=== PATIENT | female | born 1955 | race Caucasian/White ===

== ENCOUNTER → 2016-05-25 | Outpatient (CLI) | payer BC ==
[~2016-05-25] MED LIST: CHOL2000 PO; CRAN1CAP15 PO; MISC4CAP PO; PRAV20TA PO; PRLSR20 PO
== END | disposition home or self-care (01) ==
LOC: C.MAMM 13:28
PROVIDERS: ATTEND Internal Medicine
DX: C56.9 Malignant neoplasm of unspecified ovary (principal); M54.5 Low back pain; M81.0 Age-related osteoporosis without current pathological fracture

== ENCOUNTER → 2016-08-09 | Outpatient (CLI) | payer BC ==
[2016-08-10 18:03] LABS: ALBUMIN 4.6 G/DL (3.8-4.8); GAMMA GLOBULIN 1.1 G/DL (0.8-1.7); TOTAL PROTEIN 7.3 G/DL (6.2-8.3)
== END | disposition home or self-care (01) ==
LOC: C.LAB1850 10:41
PROVIDERS: ATTEND Internal Medicine Rheumatology
DX: M41.9 Scoliosis, unspecified (principal); M81.0 Age-related osteoporosis without current pathological fracture; E03.9 Hypothyroidism, unspecified; K21.9 Gastro-esophageal reflux disease without esophagitis; E61.8 Deficiency of other specified nutrient elements

== ENCOUNTER → 2017-04-28 | Outpatient (CLI) | payer BC ==
--- NOTE | 2017-04-28 14:34 | MAMMOGRAPHY REPORT ---
BILATERAL DIGITAL SCREENING MAMMOGRAM TOMOSYNTHESIS WITH CAD: 04/28/2017 CLINICAL HISTORY: Routine screening. TECHNIQUE: Breast tomosynthesis in addition to standard 2D mammography was performed. Current study was also evaluated with a Computer Aided Detection (CAD) system. COMPARISON: Comparison is made to exams dated: 03/23/2016 mammogram, 03/20/2015 mammogram, 01/17/2014 mammogram, 01/09/2014 mammogram, 12/22/2012 mammogram, and 11/19/2011 mammogram - [facility]. BREAST COMPOSITION: The tissue of both breasts is heterogeneously dense, which may obscure small mas ses. FINDINGS: No suspicious masses, calcifications, or areas of architectural distortion are noted in ei ther breast. There has been no significant interval change compared to prior exams. IMPRESSION: ACR BI-RADS CATEGORY 1: NEGATIVE There is no mammographic evidence of malignancy. A 1 year screening mammogram is recommended. The pa tient will receive written notification of the results. Approximately 10% of breast cancers are not detected with mammography. A negative mammographic report should not delay biopsy if a clinically suggestive mass is present. Akosua Hay M.D. /:04/28/2017 13:25:33 Cleaning Matron: Avis DICKERSON(Suze)(Leonor)([place]), [facility] letter sent: Normal 1/2 BI-RADS Code: ACR BI-RADS Category 1: Negative
== END | disposition home or self-care (01) ==
LOC: C.MAMM 13:00
PROVIDERS: ATTEND Internal Medicine
DX: Z12.31 Encounter for screening mammogram for malignant neoplasm of breast (principal)

== ENCOUNTER → 2017-06-28 | Outpatient (CLI) | payer OTHER | END | disposition home or self-care (01) | LOC: C.MAMM 15:15 | PROVIDERS: ATTEND Internal Medicine Rheumatology | DX: M81.0 Age-related osteoporosis without current pathological fracture (principal) ==

== ENCOUNTER 2021-01-24 16:28 | Inpatient (IN) ==
[2021-01-24] MEDS ORDERED: ONDANSETRON INJ 2 MG/ML 2 ML VIAL IV STA ×2 (16:52→17:45)
--- NOTE | 2021-01-24 16:58 | Emergency Department Note ---
History of Present Illness General Chief complaint: Abdominal Pain Stated complaint: EPIGASTRIC PAIN Time Seen by Provider: 01/24/21 16:43 Source: patient History of Present Illness Provider complaint: Upper abdominal pain Onset (ago): hour(s) Location: abdomen Radiation: non-radiation Pain Consistency: + constant Maximum Pain Intensity: 8 Quality: + sharp (Sometimes sharp) Relieved By: + none Associated symptoms: + nausea/vomiting; no chest pain, no cough, no fever/chills or no shortness of breath This is a 65-year-old female with a history of metastatic ovarian cancer and GERD presenting with epigastric pain starting at approximately 11:30 AM. She did have her customary breakfast of eggs and toast. She subsequently started to feel epigastric pain which felt very similar to her previous GERD pain. She describes it as a "pain" and sometimes sharp. No alleviating factors. She did take Pepcid twice without relief. She also took Tums without relief. She also started vomiting which is unusual for her. She did have a bowel movement today which was formed without melena or blood. She is urinating normally. She denies any fever, cough or cold symptoms, chest pain, shortness of breath, diarrhea or urinary symptoms. She did have surgery for her ovarian cancer earlier this year but states that her serum biomarkers are recently elevated. Home Medications Medication Instructions Recorded Confirmed Type calcium carbonate 500 mg (1,250 1 tab PO BID tab 02/22/19 01/24/21 History mg)-vitamin D3 200 unit tablet famotidine 20 mg tablet 20 mg PO QPM tab 12/10/19 01/24/21 History loperamide 2 mg capsule 2 mg PO .COMPLEX PRN 05/29/20 01/24/21 History omeprazole 20 mg capsule,delayed 20 mg PO DAILY #90 cap 11/24/20 01/24/21 Rx release pravastatin 80 mg tablet 80 mg PO QPM #90 tab 12/03/20 01/24/21 Rx Allergies Allergy/AdvReac Type Severity Reaction Status Date / Time No Known Drug Allergies Allergy Verified 01/24/21 17:57 Past Med/Surg History Medical History Cardiac pacemaker GERD without esophagitis Granulosa cell carcinoma of ovary Hyperglycemia Hyperlipidemia Osteoporosis Scoliosis Subclinical hypothyroidism Tubular adenoma of colon Vitamin D deficiency Surgical History H/O oral surgery S/P hysterectomy with oophorectomy S/P placement of cardiac pacemaker S/P tonsillectomy Family History Grandfather (Paternal) Coronary heart disease Grandfather (Maternal) Myocardial infarction Father Prostate cancer Denies family history of Ovarian cancer Crohn's disease Breast cancer Lung cancer Colorectal cancer Stroke Social History Smoking Status: Never smoker Second Hand Exposure: No; Hx Alcohol Use: Yes Hx Substance Use: No Preferred Language: Pakistani Communication Ability: Effective Visual Impairment: No Limitations Hearing Ability: Normal marital status: Current Living Situation: Spouse current occupational status: retired Feels Safe at Home: Yes Childhood Exposure to Second-Hand Smoke: Yes Dental Care, Regularly: Yes Physical Activity Frequency: 3-4 Times per Week Seatbelt Use: always Sunscreen Use: Yes Review of Systems See HPI for pertinent positives & negatives. and A total of 10 systems reviewed and were otherwise negative Physical Exam Vital Signs Vital Signs - 24 hr 01/24/21 16:36 01/24/21 17:15 01/24/21 21:30 Temperature 36.6 C Temperature Source Temporal Artery Scan Oral Pulse Rate 93 H Pulse Rate [Apical] 81 Pulse Rhythm [Apical] Regular Respiratory Rate 18 15 Respiratory Effort / Characteristics Non-Labored Respiratory Depth Normal Normal Respiratory Pattern Regular Blood Pressure 145/88 H Blood Pressure Mean 107 Pulse Oximetry 98 96 Oxygen Delivery Method Room Air Room Air Sepsis Recent Fever Within 48 Hours No Sepsis New/Unexplained Change in Mental Status No Sepsis Action Taken by Nursing No Action Required Constitutional: Vital signs reviewed. Eyes: Pupils are equal round reactive to light. Conjunctiva are noninjected. ENT: Pharynx is clear without erythema or exudate. Mucous membranes are slightly dry. Neck supple without meningeal signs. Respiratory: Clear to auscultation bilaterally. Breath sounds are equal bilaterally. Cardiovascular: Regular rate and rhythm. No rubs or gallops. GI: Soft, nondistended with epigastric tenderness. No guarding. Bowel sounds are present. Musculoskeletal: No peripheral edema. No lower extremity tenderness. Integumentary: No cyanosis. or jaundice. Neurological: The patient is awake and alert. No focal deficits. Psychiatric: Normal affect. Not anxious appearing. Course Administered Medications Sodium Chloride (Nss) 500 mls @ 125 mls/hr IV .Q4H MARGRET Stop: 02/23/21 16:59 Last Admin: 01/24/21 20:05 Dose: 125 mls/hr Documented by: [id number] Infusion: 01/24/21 20:05 Dose: 125 mls/hr Documented by: [id number] Admin: 01/24/21 17:11 Dose: 125 mls/hr Documented by: [id number] Discontinued Medications Ioversol (Optiray 320 100ml) 92 ml IV ONCE ONE Stop: 01/24/21 19:07 Last Admin: 01/24/21 19:06 Dose: 92 ml Documented by: [id number] Morphine Sulfate (Morphine Sulfate 4 Mg/Ml 1 Ml Carp\\Vial) 4 mg IV NOW STA Stop: 01/24/21 17:46 Last Admin: 01/24/21 17:50 Dose: 4 mg Documented by: [id number] Ondansetron HCl (Ondansetron Inj 2 Mg/Ml 2 Ml Vial) 4 mg IV NOW STA Stop: 01/24/21 16:53 Last Admin: 01/24/21 17:11 Dose: 4 mg Documented by: [id number] Ondansetron HCl (Ondansetron Inj 2 Mg/Ml 2 Ml Vial) 4 mg IV NOW STA Stop: 01/24/21 17:46 Last Admin: 01/24/21 17:50 Dose: 4 mg Documented by: [id number] Medical Decision Making Differential Diagnosis Peptic ulcer disease, gastritis, GERD, bowel obstruction, metastatic disease, pancreatitis, cholecystitis Medical Records Attestation: I reviewed the patient's medical records. I did perform a limited focused review of portions of the patient's old chart on the electronic medical record. The patient has a history of metastatic ovarian cancer. She had surgery in June. Home Medications Current Medication List: was personally reviewed by me Laboratory Data Attestation: I reviewed the patient's lab results. Result diagrams: 01/24/21 18:03 01/24/21 18:03 Lab Results 01/24/21 01/24/21 01/24/21 Range/Units 18:03 18:03 18:10 WBC 10.64 (4.8-10.8) K/uL RBC 4.34 (4.2-5.4) M/uL Hgb 13.1 (12.0-16.0) g/dL Hct 39.4 (37-47) % MCV 90.8 (80-100) fL MCH 30.2 (25-34) pg MCHC 33.2 (32-36) g/dL RDW Std Deviation 42.8 (36.4-46.3) fL RDW Coeff of [place]ed[place] 12.8 (11.5-14.5) % Plt Count 185 (130-400) K/uL MPV 10.9 H (7.4-10.4) fL Immature Gran % (Auto) 0.1 % Neut % (Auto) 91.2 % Lymph % (Auto) 6.4 % [place] % (Auto) 2.1 % Eos % (Auto) 0.0 % Baso % (Auto) 0.2 % Neut # (Auto) 9.71 H (1.4-6.5) K/uL Lymph # (Auto) 0.68 L (1.2-3.4) K/uL [place] # (Auto) 0.22 (0.11-0.59) K/uL Eos # (Auto) 0.00 (0-0.5) K/uL Baso # (Auto) 0.02 (0-0.2) K/uL Immature Gran # (Auto) 0.01 (0.00-0.02) K/uL Sodium 140 (136-145) mmol/L Potassium 3.4 L (3.5-5.1) mmol/L Chloride 107 (98-107) mmol/L Carbon Dioxide 25 (21-32) mmol/L Anion Gap 8.0 (3-11) BUN 13 (7-18) mg/dl Creatinine 0.72 (0.6-1.2) mg/dl Est Cr Clr Drug Dosing 59.1 ml/min Est GFR ( Amer) 102.6 ml/min Est GFR (Non-Af Amer) 88.5 ml/min BUN/Creatinine Ratio 18.2 (10-20) Glucose 125 H (70-99) mg/dl Lactate 1.3 (0.4-2.0) mmol/L Calcium 8.8 (8.5-10.1) mg/dl Total Bilirubin 0.3 (0.2-1) mg/dl AST 25 (15-37) U/L ALT 21 (12-78) U/L Alkaline Phosphatase 50 (45-117) U/L Troponin I < 0.015 (0-0.045) ng/ml Total Protein 7.7 (6.4-8.2) gm/dl Albumin 3.5 (3.4-5.0) gm/dl Globulin 4.2 H (2.5-4.0) gm/dl Albumin/Globulin Ratio 0.8 L (0.9-2) Lipase 166 (73-393) U/L COVID-19 Eval Order SARS-CoV-2 (PCR) (Negative) 01/24/21 01/24/21 Range/Units 20:26 20:26 WBC (4.8-10.8) K/uL RBC (4.2-5.4) M/uL Hgb (12.0-16.0) g/dL Hct (37-47) % MCV (80-100) fL MCH (25-34) pg MCHC (32-36) g/dL RDW Std Deviation (36.4-46.3) fL RDW Coeff of Cedrick (11.5-14.5) % Plt Count (130-400) K/uL MPV (7.4-10.4) fL Immature Gran % (Auto) % Neut % (Auto) % Lymph % (Auto) % [place] % (Auto) % Eos % (Auto) % Baso % (Auto) % Neut # (Auto) (1.4-6.5) K/uL Lymph # (Auto) (1.2-3.4) K/uL [place] # (Auto) (0.11-0.59) K/uL Eos # (Auto) (0-0.5) K/uL Baso # (Auto) (0-0.2) K/uL Immature Gran # (Auto) (0.00-0.02) K/uL Sodium (136-145) mmol/L Potassium (3.5-5.1) mmol/L Chloride (98-107) mmol/L Carbon Dioxide (21-32) mmol/L Anion Gap (3-11) BUN (7-18) mg/dl Creatinine (0.6-1.2) mg/dl Est Cr Clr Drug Dosing ml/min Est GFR ( Amer) ml/min Est GFR (Non-Af Amer) ml/min BUN/Creatinine Ratio (10-20) Glucose (70-99) mg/dl Lactate (0.4-2.0) mmol/L Calcium (8.5-10.1) mg/dl Total Bilirubin (0.2-1) mg/dl AST (15-37) U/L ALT (12-78) U/L Alkaline Phosphatase (45-117) U/L Troponin I (0-0.045) ng/ml Total Protein (6.4-8.2) gm/dl Albumin (3.4-5.0) gm/dl Globulin (2.5-4.0) gm/dl Albumin/Globulin Ratio (0.9-2) Lipase (73-393) U/L COVID-19 Eval Order Covid19 at [facility] SARS-CoV-2 (PCR) NEGATIVE (Negative) Imaging Data Radiologist's Impression: Abdomen/Pelvis CT 01/24/21 19:01 CT OF THE ABDOMEN AND PELVIS WITH CONTRAST CLINICAL HISTORY: Epigastric pain. Granulosa cell carcinoma of ovary. Evaluate for obstruction or mass. COMPARISON STUDY: CT of the abdomen and pelvis March 05, 2020. TECHNIQUE: Following IV administration of 92 mL of Optiray, axial images of the abdomen and pelvis were obtained from the lung bases to the proximal femurs. Images were reviewed in the axial, sagittal, and coronal planes. IV contrast was administered without complication. Automated exposure control was utilized for the study. A dose lowering technique was utilized adhering to the principles of ALARA. CT DOSE: 232.24 mGy.cm FINDINGS: Pacer leads are partially imaged. There are postoperative findings within the thoracolumbar spine. A 5 mm right lower lobe nodule on image 3 of 376 is indeterminate. No pneumatosis, free air or portal venous gas is present. The liver, spleen, adrenal glands, kidneys and pancreas are unremarkable. There is no biliary or pancreatic ductal dilatation. The previously described multiloculated cystic enhancing lesion within the right abdomen adjacent to the IVC and right kidney has increased in size since CT of March 05, 2020. This now measures 4.6 x 2.7 cm. It previously measured 3.9 x 2.4 cm. No additional masses or enlarged lymph nodes within the abdomen or pelvis are present. Trace fluid within the pelvis is noted. Note is made of mild dilatation of the proximal small bowel. Small bowel loops measure up to 3.4 cm in caliber. Transition point is shown within the lower abdomen on axial image 216 of 376. Distal small bowel is decompressed. There is mild mesenteric infiltration associated with several mid small bowel loops with mild small bowel wall thickening. The colon is decompressed. Major vasculature is patent. No acute fracture or suspicious lesion is identified within the visualized skeletal structures. IMPRESSION: 1. Mild dilatation of the proximal small bowel with transition point within the lower abdomen and decompressed distal small bowel. The findings represent a small bowel obstruction. Mesenteric infiltration and wall thickening associated with several small bowel loops may be related to the small bowel obstruction or represent a nonspecific enteritis. Small amount of ascites. 2. Increase in size of the multiloculated cystic enhancing right abdominal mass adjacent to the IVC and right kidney since CT of March 05, 2020. This is suggestive of metastatic disease. 3. Indeterminate 5 mm right lower lobe pulmonary nodule which can be assessed on subsequent exams. ACT 112: Negative or not required by law. Electronically signed by: Jonh Thurston M.D. 01/24/2021 7:35 PM ECG Data Attestation: I personally reviewed and interpreted this ECG as follows: Indication: + abdominal pain and + vomiting Rate (beats per minute): 74 Rhythm: + normal sinus ECG Justin: + Normal ECG ST segments: no ST elevation ECG Findings: no PVCs MDM Narrative I did evaluate the patient as noted above. She is presenting with epigastric pain. She states it feels similar to her GERD pain which she has had for over 10 years but it has not responded to Tums or Pepcid and it is associated with vomiting. IV access was established. I did treat her with normal saline and Zofran IV. I did place an order for continuous cardiac monitoring. The monitor showed normal sinus rhythm at a rate of 90 bpm. I did order and personally review the patient's 12-lead EKG as described above. She has no acute ischemic changes. I did order a urine analysis. I did order and review the patient's blood work as noted in the electronic medical record. White count is 10.6. She is not anemic. Electrolytes demonstrate a mild hypokalemia but are otherwise unremarkable. Troponin and LFTs and lipase are unremarkable. I did order a CT of the abdomen and pelvis with p.o. and IV contrast. She said she had a CAT scan scheduled for next week with contrast. Unfortunately she was unable to anselmo erate the oral contrast. I did treat her with morphine 4 mg IV and Zofran 4 mg IV but she threw up. I did change the CAT scan to only IV contrast. I did review the images myself as well as the radiology report as described above. She does appear to have an size of her right abdominal mass adjacent to the IVC as well as a pulmonary nodule and right lower lung and a small bowel obstruction. I did discuss the test results with the patient and her . I did discuss case with Dr. Cai of surgery. He recommended a NG tube. Case was discussed with the transplant case manager and the hospitalist was informed. I did order an NG tube and a COVID-19 test. Impression & Plan Small bowel obstruction, Acute hypokalemia Discharge Plan Visit Data Chief Complaint: Abdominal Pain Stated Complaint: EPIGASTRIC PAIN ED Provider: Grant Gomez Discharge Problem: Small bowel obstruction, Acute hypokalemia Patient Disposition: Being Evaluated by Hospitalist Discharge Instructions Interventions: ED Discharge Assessment Last Done: 01/24/21 22:23
[2021-01-24] MEDS: SODIUM CHLORIDE 0.9% 500 ML IV SCH ×2 (17:11→20:05)
[2021-01-24] MEDS ORDERED: MoRPHine SULFATE 4 MG/ML 1 ML CARP\\VIAL IV STA (17:45)
[2021-01-24 18:20] LABS: Basophils # (auto) 0.02 K/uL (0-0.2); Basophils % (auto) 0.2 %; Hematocrit (blood only) 39.4 % (37-47); Hemoglobin 13.1 g/dL (12.0-16.0); Immature Granulocytes # (auto) 0.01 K/uL (0.00-0.02); Immature Granulocytes % (auto) 0.1 %; Lymphocytes # (auto) 0.68 K/uL (1.2-3.4); Lymphocytes % (auto) 6.4 %; Mean Corpuscular Hemoglobin 30.2 pg (25-34); Mean Corpuscular Hgb Conc 33.2 g/dL (32-36); Mean Corpuscular Volume 90.8 fL (80-100); Mean Platelet Volume 10.9 fL (7.4-10.4); Monocytes # (auto) 0.22 K/uL (0.11-0.59); Monocytes % (auto) 2.1 %; Neutrophils # (auto) 9.71 K/uL (1.4-6.5); Neutrophils % (auto) 91.2 %; Platelet Count 185 K/uL (130-400); RDW Coefficient of Variation 12.8 % (11.5-14.5); RDW Standard Deviation 42.8 fL (36.4-46.3); Red Blood Count 4.34 M/uL (4.2-5.4); White Blood Count 10.64 K/uL (4.8-10.8)
[2021-01-24 18:39] LABS: Alanine Aminotransferase 21 U/L (12-78); Albumin Level 3.5 gm/dl (3.4-5.0); Aspartate Aminotransferase 25 U/L (15-37); BUN Creatinine Ratio 18.2 (10-20); Blood Urea Nitrogen 13 mg/dl (7-18); Calcium 8.8 mg/dl (8.5-10.1); Carbon Dioxide 25 mmol/L (21-32); Chloride 107 mmol/L (98-107); Creatinine Clr Calc Pharmacy 59.1 ml/min; Est GFR (African American) 102.6 ml/min; Est GFR (Non-African American) 88.5 ml/min; Glucose 125 mg/dl (70-99); Potassium 3.4 mmol/L (3.5-5.1); Sodium 140 mmol/L (136-145)
[2021-01-24 18:55] LABS: Albumin Globulin Ratio 0.8 (0.9-2); Alkaline Phosphatase 50 U/L (45-117); Bilirubin,Total 0.3 mg/dl (0.2-1); Globulin 4.2 gm/dl (2.5-4.0); Lipase 166 U/L (73-393); Total Protein 7.7 gm/dl (6.4-8.2); Troponin I < 0.015 ng/ml (0-0.045)
[2021-01-24] MEDS ORDERED: OPTIRAY 320 100ml IV ONE (19:06)
--- NOTE | 2021-01-24 19:36 | CT Scan Report ---
CT OF THE ABDOMEN AND PELVIS WITH CONTRAST CLINICAL HISTORY: Epigastric pain. Granulosa cell carcinoma of ovary. Evaluate for obstruction or mas s. COMPARISON STUDY: CT of the abdomen and pelvis March 05, 2020. TECHNIQUE: Following IV administration of 92 mL of Optiray, axial images of the abdomen and pelvis we re obtained from the lung bases to the proximal femurs. Images were reviewed in the axial, sagittal, and coronal planes. IV contrast was administered without complication. Automated exposure control wa s utilized for the study. A dose lowering technique was utilized adhering to the principles of ALARA . CT DOSE: 232.24 mGy.cm FINDINGS: Pacer leads are partially imaged. There are postoperative findings within the thoracolumbar spine. A 5 mm right lower lobe nodule on image 3 of 376 is indeterminate. No pneumatosis, free air o r portal venous gas is present. The liver, spleen, adrenal glands, kidneys and pancreas are unremarka ble. There is no biliary or pancreatic ductal dilatation. The previously described multiloculated cys tic enhancing lesion within the right abdomen adjacent to the IVC and right kidney has increased in s ize since CT of March 05, 2020. This now measures 4.6 x 2.7 cm. It previously measured 3.9 x 2.4 cm . No additional masses or enlarged lymph nodes within the abdomen or pelvis are present. Trace fluid within the pelvis is noted. Note is made of mild dilatation of the proximal small bowel. Small bowel loops measure up to 3.4 cm in caliber. Transition point is shown within the lower abdomen on axial im age 216 of 376. Distal small bowel is decompressed. There is mild mesenteric infiltration associated with several mid small bowel loops with mild small bowel wall thickening. The colon is decompressed. Major vasculature is patent. No acute fracture or suspicious lesion is identified within the visualiz ed skeletal structures. IMPRESSION: 1. Mild dilatation of the proximal small bowel with transition point within the lower abdomen and dec ompressed distal small bowel. The findings represent a small bowel obstruction. Mesenteric infiltrati on and wall thickening associated with several small bowel loops may be related to the small bowel ob struction or represent a nonspecific enteritis. Small amount of ascites. 2. Increase in size of the multiloculated cystic enhancing right abdominal mass adjacent to the IVC a nd right kidney since CT of March 05, 2020. This is suggestive of metastatic disease. 3. Indeterminate 5 mm right lower lobe pulmonary nodule which can be assessed on subsequent exams. ACT 112: Negative or not required by law. Electronically signed by: Jonh Thurston M.D. 01/24/2021 7:35 PM
--- NOTE | 2021-01-24 20:51 | Surgery Consultation ---
Date of Consultation January 24, 2021 Assessment & Plan (1) Small bowel obstruction: Patient has very mildly dilated small bowel She does have active bowel sounds which is encouraging She does most likely have significant adhesions from prior surgery We will attempt nonsurgical intervention which would include NG tube decompression Bowel rest and IV fluids If it does appear she may need surgery there is a possibility she would want to be transferred to [facility] History of Present Illness History of Present Illness 65-year old female presenting the emergency room with nausea and vomiting and some associated abdominal pain She has a history of metastatic ovarian cancer which is a granulosa cell tumor which is very slow-growing On June 2020 she underwent abdominal exploration with debulking procedure at [facility] She also had this done in 2004 and 2014 Her CAT scan showed mildly dilated small bowel to 3.4 cm with apparent transition point in the pelvis She also has some evidence of retroperitoneal mass which has enlarged from 3.9 to 4.6 cm since 02/2021 Allergies Allergy/AdvReac Type Severity Reaction Status Date / Time No Known Drug Allergies Allergy Verified 01/24/21 17:57 Home Medications Medication Instructions Recorded Confirmed Type calcium carbonate 500 mg (1,250 1 tab PO BID tab 02/22/19 01/24/21 History mg)-vitamin D3 200 unit tablet famotidine 20 mg tablet 20 mg PO QPM tab 12/10/19 01/24/21 History loperamide 2 mg capsule 2 mg PO .COMPLEX PRN 05/29/20 01/24/21 History omeprazole 20 mg capsule,delayed 20 mg PO DAILY #90 cap 11/24/20 01/24/21 Rx release pravastatin 80 mg tablet 80 mg PO QPM #90 tab 12/03/20 01/24/21 Rx Patient History Medical History (Updated 01/24/21 @ 20:47 by Grant Gomez MD) Cardiac pacemaker GERD without esophagitis Granulosa cell carcinoma of ovary Hyperglycemia Hyperlipidemia Osteoporosis Scoliosis Subclinical hypothyroidism Tubular adenoma of colon Vitamin D deficiency Surgical History H/O oral surgery S/P hysterectomy with oophorectomy S/P placement of cardiac pacemaker S/P tonsillectomy Family History Grandfather (Paternal) Coronary heart disease Grandfather (Maternal) Myocardial infarction Father Prostate cancer Denies family history of Ovarian cancer Crohn's disease Breast cancer Lung cancer Colorectal cancer Stroke Social History Smoking Status: Never smoker Second Hand Exposure: No; Hx Alcohol Use: Yes Hx Substance Use: No Preferred Language: Moroccan Communication Ability: Effective Visual Impairment: No Limitations Hearing Ability: Normal marital status: Current Living Situation: Spouse current occupational status: retired Feels Safe at Home: Yes Childhood Exposure to Second-Hand Smoke: Yes Dental Care, Regularly: Yes Physical Activity Frequency: 3-4 Times per Week Seatbelt Use: always Sunscreen Use: Yes Review of Systems Review of Systems: All systems reviewed & are unremarkable except as noted in HPI & below Physical Exam Physical Exam: Patient's abdomen is not significantly distended she has some mild discomfort to palpation She does have normal active bowel sounds Constitutional: no acute distress Eyes: + anicteric sclerae Respiratory: normal respiratory effort; no respiratory distress Cardiovascular: Rate/Rhythm: regular rate Gastrointestinal (Abdomen): Inspection/Auscultation: abdomen not distended Skin: no rashes, warm and dry Neurologic: awake Psychiatric: Orientation: alert Results & Data ([facility]) Vital Signs (Past 12 Hours) Vital Signs Temp Pulse Resp BP Pulse Ox 01/24/21 16:36 36.6 C 93 H 18 145/88 H 98 Laboratory Results I did review her laboratory studies Diagnostic Findings I did review her CAT scan PG Care Time/CCT Total # of Minutes Spent Total Time Spent with Patient: Total time spent is greater than 50% in coordination of care (as documented) at patient's floor/unit and/or counseling patient: Coding Level of Care Code 08152 Office/OBS Consult Lvl 4 Diagnoses Small bowel obstruction K56.609
--- NOTE | 2021-01-24 21:40 | History & Physical Report ---
Date of Service January 24, 2021 Assessment & Plan (1) Small bowel obstruction: Plan: 65 yo F w/ pMHx. of granulosa cell tumor, pacemaker placed, GERD, HLD, osteoporosis, and tubular adenoma of the colon and IBS presents with abdominal pain found to have SBO on CT a/p. SBO, potentially from adhesions from prior debulking surgery that was recently done vs. d/t mass CT a/p w/ findings of 1. SBO 2. increased size of multiloculated right abdominal mass adjacent to IVC concerning for metastasis 3. 5mm right lower lobe pulm. nodule WBC 10.6, lactate nl. at 1.3, lipase nl. - admitted to med/surg - consulted Dr. Cai with general surgery with rec. 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 lap in 2014, ex. lap in 06/29 [employer] Employment. onc. through [facility] CT a/p w/ mass as above - will need to follow up with oncology as an outpatient Reflux - holding oral medication - added IV Famotine while NPO HLD - holding Pravastatin while NPO Osteoporosis - holding Ca++ w/ Vit D while NPO Code: full Diet: NPO, IVF DVT: Lovenox (2) Acute hypokalemia: (3) Granulosa cell tumor: (4) GERD without esophagitis: (5) Osteoporosis: (6) Tubular adenoma of colon: (7) Subclinical hypothyroidism: History of Present Illness Chief Complaint: abdominal pain Primary Care Provider: Mikel Muniz MD Dolly Wiggins is a 65-year-old female with a past medical history of granulosa cell tumor, pacemaker placed, GERD, osteoporosis, and tubular adenoma of the colon and IBS presents with abdominal pain. She ate breakfast and then developed epigastric pain that was similar to her reflux symptoms. She took her normal a jhno suppressing medications including Famotidine and Omeprazole with no improvement in her symptoms. The pain was as bad as 8/10 when she came to the ER and sharp in nature. The pain is currently 5-6/10 after Morphine. She vomited twice prior to coming the the ER and twice while here in the ER. She did not have any preceding symptoms and has never had an obstruction previously. She did have a bowel movement after developing the abdominal pain. She has a granulosa cell tumor and underwent debulking surgery most recently in June. Her tumor markers were as high as 20's, had gone down but have come up on labs done on 01/23 to . Her doctor with Gynecology Oncology at [facility] is Dr. Lui Knox. She has a living will and I discussed palliative care and she was not interested in talking with them during this admission. Elizabeth Wiggins would like to be updated with any changes in her care @ # [phone] Allergies Allergy/AdvReac Type Severity Reaction Status Date / Time No Known Drug Allergies Allergy Verified 01/24/21 17:57 Home Medications Medication Instructions Recorded Confirmed Type calcium carbonate 500 mg (1,250 1 tab PO BID tab 02/22/19 01/24/21 History mg)-vitamin D3 200 unit tablet famotidine 20 mg tablet 20 mg PO QPM tab 12/10/19 01/24/21 History loperamide 2 mg capsule 2 mg PO .COMPLEX PRN 05/29/20 01/24/21 History omeprazole 20 mg capsule,delayed 20 mg PO DAILY #90 cap 11/24/20 01/24/21 Rx release pravastatin 80 mg tablet 80 mg PO QPM #90 tab 12/03/20 01/24/21 Rx Past Med/Surg History Medical History Cardiac pacemaker GERD without esophagitis Granulosa cell carcinoma of ovary Hyperglycemia Hyperlipidemia Osteoporosis Scoliosis Subclinical hypothyroidism Tubular adenoma of colon Vitamin D deficiency Surgical History H/O oral surgery S/P hysterectomy with oophorectomy S/P placement of cardiac pacemaker S/P tonsillectomy Family History Grandfather (Paternal) Coronary heart disease Grandfather (Maternal) Myocardial infarction Father Prostate cancer Denies family history of Ovarian cancer Crohn's disease Breast cancer Lung cancer Colorectal cancer Stroke Social History Smoking Status: Never smoker Second Hand Exposure: No; Hx Alcohol Use: Yes Alcohol type: wine Hx Substance Use: No Preferred Language: Hungarian Communication Ability: Effective Visual Impairment: No Limitations Hearing Ability: Normal Stoner Hand Required: No Beliefs That Will Affect Care: None marital status: Current Living Situation: Spouse current occupational status: retired Other Information That Helps Us Care for You: No Feels Safe at Home: Yes Safety Concerns: Feels Safe At This Time Childhood Exposure to Second-Hand Smoke: Yes Dental Care, Regularly: Yes Physical Activity Frequency: 3-4 Times per Week Seatbelt Use: always Sunscreen Use: Yes Assistive Devices: None Review of Systems Review of Systems: Constitutional: denies fevers, chills, general weakness, diaphoresis, night sweats, weight loss admits nausea and vomiting X4 Head: denies trauma, LOC, headaches, confusion, lightheadedness, vision changes Neuro: denies slurring of speech, focal weakness, numbness and tingling ENT: denies rhinorrhea, stuffiness, sneezing, sore throat Cardiac: denies chest pain, palpitations, leg edema, orthopnea pulm.: denies cough, shortness of breath GI: admits abdominal pain, constipation intermittently (uses Imodium for this 2- 3 times a week most recently on the ) : denies urinary urgency, frequency, dysuria Physical Exam Constitutional: WD/WN, vitals as above Eyes: PERRL, conjunctivae normal, anicteric sclerae ENMT: external ear and nose normal, oropharynx normal - NG in place and draining brown/green/ clear fluid Neck: normal visual inspection Respiratory: normal respiratory effort, lungs clear to auscultation Cardiovascular: RRR, no murmur, no edema Gastrointestinal (Abdomen): - high pitched tinkling bowel sounds heard - soft, no guarding - mild tenderness at the epigastric area w/o tenderness elsewhere Skin: no rashes, warm and dry - midline well healed abdominal scar Neurologic: PERRL, EOMI, accommodation nl, no face palsy, no dysarthria Psychiatric: A+Ox3, euthymic affect Results & Data Results & Data ([facility]) Vital Signs (Past 12 Hours) Vital Signs Temp Pulse Pulse Resp BP Pulse Ox 01/24/21 21:30 81 15 96 01/24/21 16:36 36.6 C 93 H 18 145/88 H 98 CBC Results Results Complete Blood Count Results: RBC 3.97 M/uL (4.2-5.4) L 01/25/21 WBC 9.36 K/uL (4.8-10.8) 01/25/21 Hgb 11.9 g/dL (12.0-16.0) L 01/25/21 Hct 35.5 % (37-47) L 01/25/21 Plt Count 192 K/uL (130-400) 01/25/21 Chemistry (BMP) Results BMP Results: Sodium 139 mmol/L (136-145) 01/25/21 Potassium 3.5 mmol/L (3.5-5.1) 01/25/21 Chloride 106 mmol/L (98-107) 01/25/21 BUN 11 mg/dl (7-18) 01/25/21 Creatinine 0.63 mg/dl (0.6-1.2) 01/25/21 Glucose 100 mg/dl (70-99) H 01/25/21 Code Status & VTE Plan VTE Prophylaxis Plan VTE Prophylaxis will be ordered: Yes Supervising Physician Co-Signing Physician Notes Attending addendum: I have physically seen this patient, have supervised the medical residents activities, and agree with the H&P unless as otherwise noted. Assessment and Plan: Small bowel obstruction- NPO NG tube to low intermittent suction IV fluids Morphine 2 mg IV every 4 hours as needed severe pain Consult general surgery Granulosa cell tumor status post bilateral salpingo-oophorectomy in 2004- Follows with [facility] CT of abdomen pelvis suggesting mass Need to follow-up with [facility] GERD- Placed on famotidine 20 mg IV every 12 hours Remaining orders and notations as noted Resident Activity Tracking Resident Involvement: Resident Care Provided Care Provided: Adult Hospital Medicine
[2021-01-24 21:56] LABS: Appearance Urine Clear (Clear); Bilirubin Urine Negative (Negative); Blood Urine Negative (Negative); Color Urine Yellow; Glucose Urine UA Negative (Negative); Ketones Urine 1+ (Negative); Leukocyte Esterase Urine Negative (Negative); Nitrite Urine Negative (Negative); Protein Urine Negative (Negative); Specific Gravity Urine > 1.045 (1.000-1.030); Urobilinogen Urine Negative (Negative); pH Urine 8.5 (4.5-7.5)
[2021-01-24] MEDS ORDERED: MoRPHine SULFATE 2 MG/ML CARP IV PRN (23:25)
[2021-01-24] MEDS ORDERED: ONDANSETRON INJ 2 MG/ML 2 ML VIAL IV PRN (23:25)
[2021-01-24] MEDS: SODIUM CHLORIDE 0.9% 1000ML 1,000 ML IV SCH (23:44)
[2021-01-25] MEDS ORDERED: ENOXAPARIN INJ 40 MG/0.4 ML SYR SQ SCH
[2021-01-25] MEDS: ENOXAPARIN INJ 40 MG/0.4 ML SYR SQ SCH (06:08)
[2021-01-25] MEDS: SODIUM CHLORIDE 0.9% 1000ML 1,000 ML IV SCH (07:03)
[2021-01-25] MEDS: MoRPHine SULFATE 4 MG/ML 1 ML CARP\\VIAL IV PRN ×2 (07:05→13:42)
--- NOTE | 2021-01-25 07:06 | Surgery Progress Note ---
Date of Service January 25, 2021 Assessment & Plan (1) Small bowel obstruction: Plan: I believe she had significant gastric distention The NG tube is helping with decompression We will give her ice Encourage ambulation Check her a.m. labs Depending on her progress may consider small bowel follow tomorrow Admission and Anticipated Discharge Date Admission Date: January 24, 2021 Subjective Patient had 950 cc from NG tube She has minimal in the container this morning She did have some crampy pain during the night No emesis Review of Systems Review of Systems: All systems reviewed & are unremarkable except as noted in HPI & below Physical Exam Physical Exam: She is awake and alert in no distress Her abdomen is flat and soft with minimal tenderness Constitutional: well developed and well nourished; no acute distress Eyes: + anicteric sclerae Respiratory: normal respiratory effort; no respiratory distress Cardiovascular: Rate/Rhythm: regular rate Gastrointestinal (Abdomen): Percussion/Palpation: abdomen soft Musculoskeletal: Gait: normal gait Skin: no rashes, warm and dry Neurologic: awake Psychiatric: Orientation: alert Results & Data ([facility]) Vital Signs (Past 12 Hours) Vital Signs Temp Pulse Pulse Resp BP Pulse Ox 01/24/21 23:25 37 C 75 16 165/80 H 95 01/24/21 21:30 81 15 96 PG Care Time/CCT Total # of Minutes Spent Total Time Spent with Patient: Total time spent is greater than 50% in coordination of care (as documented) at patient's floor/unit and/or counseling patient: Coding Level of Care Code 32189 Inpt Consult Level 3 Diagnoses Small bowel obstruction K56.609
[2021-01-25] MEDS: FAMOTIDINE 20 MG in SYRINGE 3 ML IV SCH (08:24)
[2021-01-25 09:27] LABS: Basophils # (auto) 0.03 K/uL (0-0.2); Basophils % (auto) 0.3 %; Eosinophils # (auto) 0.01 K/uL (0-0.5); Eosinophils % (auto) 0.1 %; Hematocrit (blood only) 35.5 % (37-47); Hemoglobin 11.9 g/dL (12.0-16.0); Immature Granulocytes # (auto) 0.03 K/uL (0.00-0.02); Immature Granulocytes % (auto) 0.3 %; Lymphocytes # (auto) 0.97 K/uL (1.2-3.4); Lymphocytes % (auto) 10.4 %; Mean Corpuscular Hgb Conc 33.5 g/dL (32-36); Mean Corpuscular Volume 89.4 fL (80-100); Mean Platelet Volume 10.7 fL (7.4-10.4); Monocytes # (auto) 0.59 K/uL (0.11-0.59); Monocytes % (auto) 6.3 %; Neutrophils # (auto) 7.73 K/uL (1.4-6.5); Neutrophils % (auto) 82.6 %; Platelet Count 192 K/uL (130-400); RDW Coefficient of Variation 13.1 % (11.5-14.5); RDW Standard Deviation 42.3 fL (36.4-46.3); Red Blood Count 3.97 M/uL (4.2-5.4); White Blood Count 9.36 K/uL (4.8-10.8)
[2021-01-25 09:47] LABS: Albumin Level 3.6 gm/dl (3.4-5.0); BUN Creatinine Ratio 17.4 (10-20); Calcium 8.4 mg/dl (8.5-10.1); Creatinine Clr Calc Pharmacy 67.1 ml/min; Est GFR (African American) 109.9 ml/min; Est GFR (Non-African American) 94.8 ml/min; Potassium 3.5 mmol/L (3.5-5.1)
[2021-01-25 09:49] LABS: Albumin Globulin Ratio 1.1 (0.9-2); Bilirubin,Total 0.4 mg/dl (0.2-1); Globulin 3.4 gm/dl (2.5-4.0)
--- NOTE | 2021-01-25 13:04 | Hospitalist Progress Note ---
Date of Service January 25, 2021 Assessment & Plan (1) Small bowel obstruction: Plan: Dolly Wiggins is a 65 yo female with PMHx significant for granulosa cell tumor, s/p PPM, GERD, HLD, osteoporosis, and tubular adenoma of the colon and IBS who was admitted to [facility] on 01/24 for small bowel obstruction. Small Bowel Obstruction Suspect due to adhesions from prior abdominal surgeries; less likely due to cystic right abdominal mass (see below) given clinical improvement thus far. Patient is improving after placement of NG tube; had ~1L output overnight. 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 lap in 2014, ex. lap in 06/[address] A/P this hospitalization: increased size of multiloculated right abdominal mass adjacent to IVC concerning for metastasis, as well as 5mm right lower lobe pulmonary nodule. - Patient follows with Dr. Lui Knox ([facility] [employer] Onc) at [facility] [place], [place] - will need to follow up with [employer] Onc as an outpatient, for consideration of another surgery vs other treatments - CT A/P burned on CD for the patient to take for [employer] Onc f/u GERD - holding oral medication - continue IV Famotine while NPO HLD - holding Pravastatin while NPO Osteoporosis - holding Calcium and Vitamin D while NPO Code: FULL CODE FEN/GI: NPO, LR @80cc/hr DVT ppx: Lovenox (2) Acute hypokalemia: (3) Granulosa cell tumor: (4) GERD without esophagitis: (5) Osteoporosis: (6) Tubular adenoma of colon: (7) Subclinical hypothyroidism: Admission and Anticipated Discharge Date Admission Date: January 24, 2021 Supervising Physician Co-Signing Physician Notes I personally examined the patient and verified all larson points of history and exam, discussed case, and agree with decision making with Dr Crawford feeling better still some pain and nausea but better than last night Vitals noted, pleasant no distress. NG tube in place without breakdown. Abdomen is soft nondistended nontender no masses organomegaly guarding rebound or rigidity. No focal neuro deficits. Small bowel obstructionhopefully adhesional, cannot definitively rule out tumor relatedgiven that she is improving, more likely adhesional. Obviously if improvement stalls out, or she shows worsening, then we may need to consider tumor relatedat which point would probably be most appropriate to transfer to where she has her [employer] oncology surgery. In the meantime however, continue NG drainage supportive care pain control nausea control. For a small bowel follow- through tomorrow per surgery. Otherwise as above. DVT prophylaxisLovenox Subjective No acute events overnight. NG tube ~1L output. Patient reports feeling much better this morning; no nausea or vomiting. Still has mild epigastric tenderness but this has been well-controlled. No other complaints. Review of Systems Review of Systems: Denies fever/chills, chest pain, palpitations, SOB, cough, N/V, rash. Physical Exam Physical Exam: General: A&Ox3. NAD. Cooperative. HEENT: Atraumatic, normocephalic. NG tube in place. Pulm: CTAB A&P. -wheezes, -rales, -rhonchi. Symmetrical chest rise. No increase work of breathing. No respiratory distress. Cardiac: RRR, -mrg. Radial pulses intact and symmetrical. Abdominal: soft, non-tender, non-distended, hyperactive BS x 4, laparotomy scar c/d/i Skin: warm, dry, no rash Results & Data Results & Data ([facility]) Vital Signs (Past 12 Hours) Vital Signs Temp Pulse Resp BP Pulse Ox 01/25/21 07:28 36.9 C 72 16 117/68 97 Resident Activity Tracking Resident Involvement: Resident Care Provided Care Provided: Adult [facility] Medicine
[2021-01-25] MEDS: LACTATED RINGER'S 1,000 ML IV SCH (13:38)
--- NOTE | 2021-01-25 17:48 | Billing Data ---
Date of Service January 25, 2021 Coding Level of Care Code 91389 Subseq Hosp Care Lvl 2
--- NOTE | 2021-01-25 19:22 | Billing Data ---
Date of Service January 25, 2021 Coding Level of Care Code 17852 Initial Inpt Care Lvl 3
--- NOTE | 2021-01-25 20:26 | Electrocardiogram Report ---
Test Reason : Blood Pressure : / mmHG Vent. Rate : 074 BPM Atrial Rate : 074 BPM P-R Int : 140 ms QRS Dur : 082 ms QT Int : 404 ms P-R-T Axes : 065 070 067 degrees QTc Int : 448 ms Poor data quality, interpretation may be adversely affected Normal sinus rhythm Normal ECG When compared with ECG of 31-DEC-2009 11:54, No significant change was found Confirmed by David Hernandez ([id number]) on 01/25/2021 8:26:38 PM Referred By: REFERRED SELF Confirmed By:David Hernandez
[2021-01-26] MEDS: LACTATED RINGER'S 1,000 ML IV SCH (00:49)
[2021-01-26] MEDS: ENOXAPARIN INJ 40 MG/0.4 ML SYR SQ SCH (06:14)
--- NOTE | 2021-01-26 06:36 | Surgery Progress Note ---
Date of Service January 26, 2021 Assessment & Plan (1) Small bowel obstruction: Plan: Patient appears to be stable She does have moderate NG output She has less pain which is a positive sign We will obtain a small bowel follow-through via the NG tube Assess transit of contrast Over the next 24 to 48 hours if she does not progress we may consider Transfer to [facility] or the [facility] where her primary [employer] WORK[employer] oncologist is Would need to discuss details with her more Admission and Anticipated Discharge Date Admission Date: January 24, 2021 Subjective Patient continues to have bilious NG output Her pain is less and has had taking no pain medication recently Vital signs are stable Review of Systems Review of Systems: All systems reviewed & are unremarkable except as noted in HPI & below Physical Exam Physical Exam: Her abdomen is flat and soft she has some bowel sounds but diminished Minimal tenderness Constitutional: no acute distress Eyes: + anicteric sclerae Respiratory: normal respiratory effort; no respiratory distress Cardiovascular: Rate/Rhythm: regular rate Gastrointestinal (Abdomen): Inspection/Auscultation: abdomen not distended Musculoskeletal: Head/Neck/Chest: head atraumatic Skin: no rashes, warm and dry Neurologic: awake Psychiatric: Orientation: alert Results & Data ([facility]) Vital Signs (Past 12 Hours) Vital Signs Temp Pulse Resp BP Pulse Ox 01/25/21 22:09 36.8 C 72 18 127/65 97 PG Care Time/CCT Total # of Minutes Spent Total Time Spent with Patient: Total time spent is greater than 50% in coordination of care (as documented) at patient's floor/unit and/or counseling patient: Coding Level of Care Code 63905 Inpt Consult Level 4 Diagnoses Small bowel obstruction K56.609
[2021-01-26 07:03] LABS: Basophils # (auto) 0.01 K/uL (0-0.2); Basophils % (auto) 0.1 %; Eosinophils # (auto) 0.03 K/uL (0-0.5); Eosinophils % (auto) 0.3 %; Hematocrit (blood only) 38.2 % (37-47); Hemoglobin 12.8 g/dL (12.0-16.0); Immature Granulocytes # (auto) 0.01 K/uL (0.00-0.02); Immature Granulocytes % (auto) 0.1 %; Lymphocytes # (auto) 0.88 K/uL (1.2-3.4); Lymphocytes % (auto) 9.4 %; Mean Corpuscular Hemoglobin 30.5 pg (25-34); Mean Corpuscular Hgb Conc 33.5 g/dL (32-36); Mean Platelet Volume 11.1 fL (7.4-10.4); Monocytes # (auto) 0.59 K/uL (0.11-0.59); Monocytes % (auto) 6.3 %; Neutrophils # (auto) 7.88 K/uL (1.4-6.5); Neutrophils % (auto) 83.8 %; Platelet Count 204 K/uL (130-400); RDW Coefficient of Variation 12.9 % (11.5-14.5); RDW Standard Deviation 43.2 fL (36.4-46.3)
[2021-01-26 07:33] LABS: BUN Creatinine Ratio 24.1 (10-20); Calcium 8.9 mg/dl (8.5-10.1); Creatinine Clr Calc Pharmacy 72.9 ml/min; Est GFR (African American) 112.9 ml/min; Est GFR (Non-African American) 97.4 ml/min; Magnesium 2.6 mg/dl (1.8-2.4); Phosphorus 2.3 mg/dl (2.5-4.9); Potassium 3.1 mmol/L (3.5-5.1)
[2021-01-26] MEDS ORDERED: ACETAMINOPHEN 1,000 MG/100 ML VIAL IV PRN (08:08)
--- NOTE | 2021-01-26 08:09 | Hospitalist Progress Note ---
Date of Service January 26, 2021 Assessment & Plan (1) Small bowel obstruction: Plan: Dolly Wiggins is a 65 yo female with PMHx significant for granulosa cell tumor, s/p PPM, GERD, HLD, osteoporosis, and tubular adenoma of the colon and IBS who was admitted to [facility] on 01/24 for small bowel obstruction. Small Bowel Obstruction Suspect due to adhesions from prior abdominal surgeries; less likely due to cystic right abdominal mass (see below) given clinical improvement thus far. Patient is improving after placement of NG tube; had ~1L output overnight. 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 lap in 2014, ex. 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 - Patient follows with Dr. Lui Knox ([employer] Onc) at [facility] in [place] - Per discussion with surgeon above and per our surgery team's recommendations, patient will be transferred for further management - Currently awaiting bed availability for transfer GERD - holding oral medication - continue IV Famotine while NPO HLD - holding Pravastatin while NPO Osteoporosis - holding Calcium and Vitamin D while NPO Code: FULL CODE FEN/GI: NPO, NSS + KCl @ 80 cc/hr DVT ppx: Lovenox Dispo: MedSurg, transfer pending bed availability (2) Acute hypokalemia: (3) Granulosa cell tumor: (4) GERD without esophagitis: (5) Osteoporosis: (6) Tubular adenoma of colon: (7) Subclinical hypothyroidism: Admission and Anticipated Discharge Date Admission Date: January 24, 2021 Supervising Physician Co-Signing Physician Notes Resident Physician Supervision Note: I independently interviewed and examined the patient and verified the larson histo ry and physical, reviewed labs and image studies and agree with resident Dr. Garcia findings and care plan. Subjective Seen at bedside this AM. She reports that she did get nauseous and actually vomited at the beginning of her small bowel follow through. Also reported increased pain for which she needed IV morphine. However, she does reiterate this seemed to be mostly related to the study and tat she has felt better since this was done and suction was restarted. Updated with information on transfer and patient agrees to this. Review of Systems Review of Systems: Denies fever/chills, chest pain, palpitations, SOB, cough, rash. Physical Exam Physical Exam: General: A&Ox3. NAD. Cooperative. HEENT: Atraumatic, normocephalic. NG tube in place. Pulm: CTAB A&P. -wheezes, -rales, -rhonchi. Symmetrical chest rise. No increase work of breathing. No respiratory distress. Cardiac: RRR, -mrg. Radial pulses intact and symmetrical. Abdominal: soft, non-tender, non-distended, BS+ x 4, laparotomy scar c/d/i Skin: warm, dry, no rash Results & Data Results & Data ([facility]) Vital Signs (Past 12 Hours) Vital Signs Temp Pulse Pulse Resp BP Pulse Ox 01/26/21 08:07 36.9 C 76 18 146/76 H 93 01/25/21 22:09 36.8 C 72 18 127/65 97 Resident Activity Tracking Resident Involvement: Resident Care Provided Care Provided: Adult Hospital Medicine
[2021-01-26] MEDS ORDERED: LACTATED RINGER'S 1,000 ML IV SCH (08:15)
[2021-01-26] MEDS ORDERED: POTASSIUM PHOS 3 MMOL/1 ML INFUSION IV STA (08:17)
[2021-01-26] MEDS ORDERED: POTASSIUM PHOSPHATE 15 MMOL in SODIUM CHLORIDE 0.9% 250 ML IV ONE (08:30)
[2021-01-26] MEDS ORDERED: POTASSIUM CHLORIDE / WTR 10 MEQ/100 ML PLCT IV SCH (08:30)
[2021-01-26] MEDS ORDERED: POTASSIUM CHLORIDE 40 MEQ in SODIUM CHLORIDE 0.9% 1000ML 1,000 ML IV SCH (08:45)
[2021-01-26] MEDS: FAMOTIDINE 20 MG in SYRINGE 3 ML IV SCH (10:11)
[2021-01-26] MEDS: MoRPHine SULFATE 4 MG/ML 1 ML CARP\\VIAL IV PRN (11:00)
--- NOTE | 2021-01-26 13:19 | Fluoroscopy Report ---
FL small bowel follow through CLINICAL HISTORY: Small bowel obstruction. COMPARISON STUDY: CT of the abdomen and pelvis January 24, 2021. FLUOROSCOPY TIME: 0 seconds. FLUOROSCOPIC IMAGES: 0. PROCEDURE AND FINDINGS: A small bowel follow-through was attempted. 300 cc of Optiray 300 was diluted with 300 cc of water and injected through the patient's nasogastric tube. Soon after following contr ast administration, the patient vomited however remained stable. Imaging was then performed. Deburr Operator im age demonstrates persistent mild dilatation of the proximal small bowel. Mucosal detail is diminished on this exam. Note was made of a transition point within the proximal jejunum which corresponds to t he transition point shown on CT of January 24, 2021. No contrast passed beyond this site. This repr esents a high-grade small bowel obstruction. IMPRESSION: Transition point within the proximal jejunum which corresponds to the transition point o n CT of January 24, 2021. No contrast passed beyond the site. This represents a persistent small esme wel obstruction, likely high-grade. ACT 112: Negative or not required by law. Electronically signed by: Jonh Thurston M.D. 01/26/2021 1:18 PM
[2021-01-26] MEDS: POTASSIUM CHLORIDE 40 MEQ in SODIUM CHLORIDE 0.9% 1000ML 1,000 ML IV SCH ×2 (13:33→22:05)
[2021-01-27] MEDS: ENOXAPARIN INJ 40 MG/0.4 ML SYR SQ SCH (05:30)
[2021-01-27 07:29] LABS: Basophils # (auto) 0.02 K/uL (0-0.2); Basophils % (auto) 0.2 %; Eosinophils # (auto) 0.12 K/uL (0-0.5); Eosinophils % (auto) 1.5 %; Hematocrit (blood only) 36.3 % (37-47); Immature Granulocytes # (auto) 0.01 K/uL (0.00-0.02); Immature Granulocytes % (auto) 0.1 %; Lymphocytes # (auto) 1.08 K/uL (1.2-3.4); Lymphocytes % (auto) 13.3 %; Mean Corpuscular Hemoglobin 29.8 pg (25-34); Mean Corpuscular Hgb Conc 33.1 g/dL (32-36); Mean Corpuscular Volume 90.1 fL (80-100); Mean Platelet Volume 10.8 fL (7.4-10.4); Monocytes # (auto) 0.72 K/uL (0.11-0.59); Monocytes % (auto) 8.9 %; Neutrophils # (auto) 6.18 K/uL (1.4-6.5); Platelet Count 191 K/uL (130-400); RDW Coefficient of Variation 13.1 % (11.5-14.5); RDW Standard Deviation 43.6 fL (36.4-46.3); Red Blood Count 4.03 M/uL (4.2-5.4); White Blood Count 8.13 K/uL (4.8-10.8)
[2021-01-27 08:01] LABS: BUN Creatinine Ratio 37.8 (10-20); Calcium 8.2 mg/dl (8.5-10.1); Creatinine Clr Calc Pharmacy 78.3 ml/min; Est GFR (African American) 115.6 ml/min; Est GFR (Non-African American) 99.7 ml/min; Phosphorus 1.6 mg/dl (2.5-4.9); Potassium 4.2 mmol/L (3.5-5.1)
[2021-01-27] MEDS ORDERED: POTASSIUM PHOS 3 MMOL/1 ML INFUSION IV STA (08:17)
--- NOTE | 2021-01-27 08:31 | Surgery Progress Note ---
Date of Service January 27, 2021 Assessment & Plan (1) Small bowel obstruction: Plan: Patient proximal small bowel obstruction Plan is for transfer to [facility] where her oncologic surgeon Practices Will likely require laparotomy and bowel resection Stable at the present time Admission and Anticipated Discharge Date Admission Date: January 24, 2021 Subjective No acute changes NG continues with moderate output sometimes high some shifts Minimal pain-this is likely because of the proximal nature of the obstruction Plan noted-transfer to [facility] oncology clinic later today Review of Systems Review of Systems: All systems reviewed & are unremarkable except as noted in HPI & below Physical Exam Physical Exam: General: A&Ox3. NAD. Cooperative. HEENT: Atraumatic, normocephalic. NG tube in place. Pulm: CTAB A&P. -wheezes, -rales, -rhonchi. Symmetrical chest rise. No increase work of breathing. No respiratory distress. Cardiac: RRR, -mrg. Radial pulses intact and symmetrical. Abdominal: soft, non-tender, non-distended, BS decreased, laparotomy scar c/d/i Skin: warm, dry, no rash Results & Data ([facility]) Vital Signs (Past 12 Hours) Vital Signs Temp Pulse Resp BP BP Pulse Ox 01/27/21 07:00 37.0 C 82 16 131/71 95 01/26/21 23:08 37.1 C 79 18 130/71 95 PG Care Time/CCT Total # of Minutes Spent Total Time Spent with Patient: Total time spent is greater than 50% in coordination of care (as documented) at patient's floor/unit and/or counseling patient: Coding Level of Care Code 15415 Inpt Consult Level 3 Diagnoses Small bowel obstruction K56.609
[2021-01-27] MEDS ORDERED: POTASSIUM PHOSPHATE 21 MMOL in SODIUM CHLORIDE 0.9% 500 ML IV ONE (08:45)
[2021-01-27] MEDS: FAMOTIDINE 20 MG in SYRINGE 3 ML IV SCH (09:38)
[2021-01-27] MEDS: POTASSIUM CHLORIDE 40 MEQ in SODIUM CHLORIDE 0.9% 1000ML 1,000 ML IV SCH (10:38)
--- NOTE | 2021-01-27 11:22 | Discharge Summary ---
Date of Service January 27, 2021 Admission HPI Per Admitting Provider Dolly Wiggins is a 65-year-old female with a past medical history of granulosa cell tumor, pacemaker placed, GERD, osteoporosis, and tubular adenoma of the colon and IBS presents with abdominal pain. She ate breakfast and then developed epigastric pain that was similar to her reflux symptoms. She took her normal acid suppressing medications including Famotidine and Omeprazole with no improvement in her symptoms. The pain was as bad as 8/10 when she came to the ER and sharp in nature. The pain is currently 5-6/10 after Morphine. She vomited twice prior to coming the the ER and twice while here in the ER. She did not have any preceding symptoms and has never had an obstruction previously. She did have a bowel movement after developing the abdominal pain. She has a granulosa cell tumor and underwent debulking surgery most recently in June. Her tumor markers were as high as 20's, had gone down but have come up on labs done on 01/23 to 32. Her doctor with Gynecology Oncology at [facility] is Dr. Lui Knox. She has a living will and I discussed palliative care and she was not interested in talking with them during this admission. Elizabeth Wiggins would like to be updated with any changes in her care @ # [phone] Principal Diagnosis High-grade SBO Discharge Exam GENERAL: A&Ox3. NAD. HEENT: EOMI. Moist mucous membranes. NG tube in place draining gastric content. CHEST/LUNGS: CTAB A/P. No crackles, wheezes, rales, rhonchi. HEART: RRR. No m/g/r. No carotid bruits. ABDOMEN: NT/ND, soft. BS+ x4 SKIN: Warm and dry. No rashes or lesions. PSYCHIATRIC: Euthymic affect, no SI, no pressured speech, no hallucinations NEUROLOGIC: CN II-XII grossly intact. no FND. Discharge Data Allergies Allergy/AdvReac Type Severity Reaction Status Date / Time No Known Drug Allergies Allergy Verified 01/24/21 17:57 Consultations 01/24/21 20:21 ED Decision to Admit Stat 01/24/21 23:25 Consult General Surgery Routine 01/25/21 13:19 Burn CD for patient Routine 01/26/21 13:24 Consult Health Information Management Routine Ordered Studies 01/24/21 19:01 CT abd pelvis IV con only Stat 01/26/21 06:24 FL small bowel follow through Urgent Hospital Course (1) Small bowel obstruction: Dolly Wiggins is a 65 yo female with PMHx significant for granulosa cell tumor, s/p PPM, GERD, HLD, osteoporosis, and tubular adenoma of the colon and IBS who was admitted to [facility] on 01/24 for small bowel obstruction. Small Bowel Obstruction Suspect due to adhesions from prior abdominal surgeries; less likely due to cystic right abdominal mass (see below) given clinical improvement thus far. Patient is improving after placement of NG tube; had ~1L output overnight. - Small bowel follow-through showing persistent SBO, likely high-grade, with transition point within the proximal jejunum (same as 01/24) - Surgery consulted -- recommending transfer under care of her usual surgeon as below -- Will likely require laparotomy and bowel resection -- Stable at the present time - maintain NG tube and NPO - maintenance IVF with NSS + KCl 40mEq @80 cc/hr - pain control with IV Morphine and IV Tylenol - PRN Zofran for nausea - Patient will be transferred per Gen Surg recs to care of GynOnc surgeon Granulosa cell tumor s/p bilateral salpingo oophorectomy in 2004, ex. lap in 2014, ex. 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 - Patient follows with Dr. Lui Knox ([facility]) at [facility] in [place] - Per discussion with surgeon above and per our surgery team's recommendations, patient transferred for further management Hypophosphatemia - Phos at 1.6 on day of transfer - Mildly low calcium as well - PTH level on day of transfer elevated at 107.1 - Repleted with KPhos 21mmol - Recommend recheck at transfer facility GERD - holding oral medication - continue IV Famotine while NPO HLD - holding Pravastatin while NPO Osteoporosis - holding Calcium and Vitamin D while NPO Code: FULL CODE FEN/GI: NPO, NSS + KCl @ 80 cc/hr DVT ppx: Lovenox Dispo: Transfer to other hospital (2) Acute hypokalemia: (3) Granulosa cell tumor: (4) GERD without esophagitis: (5) Osteoporosis: (6) Tubular adenoma of colon: (7) Subclinical hypothyroidism: Total Time Total Time Spent Total Time Spent (In Minutes): see attending attestation Discharge Plan Discharge Items Patient Disposition: Transfer Acute Care Hospital Reason For Visit: SBO Discharge Diagnosis: SBO Activity: Per Instructions section Non-emergency contact: Surgeon Call non-emergency contact if: your symptoms worsen and your pain is not controlled Follow-up/Referrals: ,Mikel Chawla MD [Primary Care Provider] - Diet: Heart Healthy Addtl Attending Provider Instructions: Dolly Wiggins is a 65 yo female with PMHx significant for granulosa cell tumor, s/p PPM, GERD, HLD, osteoporosis, and tubular adenoma of the colon and IBS who was admitted to [facility] on 01/24 for small bowel obstruction. Small Bowel Obstruction Suspect due to adhesions from prior abdominal surgeries; less likely due to cystic right abdominal mass (see below) given clinical improvement thus far. Patient is improving after placement of NG tube; had ~1L output overnight. 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 lap in 2014, ex. 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 - Patient follows with Dr. Lui Knox ([facility]) at [facility] in [place] - Per discussion with surgeon above and per our surgery team's recommendations, patient will be transferred for further management Hypophosphatemia - Phos at 1.6 on day of transfer - Mildly low calcium as well - PTH level on day of transfer elevated at 107.1 - Repleted with KPhos 21mmol - Recommend recheck at transfer facility GERD - holding oral medication - continue IV Famotine while NPO HLD - holding Pravastatin while NPO Osteoporosis - holding Calcium and Vitamin D while NPO Code: FULL CODE FEN/GI: NPO, NSS + KCl @ 80 cc/hr DVT ppx: Lovenox Dispo: Transfer to [facility] in [place] Pending Studies at Discharge: No Stand-Alone Forms: My [facility] Skilled Items Patient informed of condition?: Yes DNR: No Discharge Level of Care: Other Communicable Disease: No Discharge Prognosis: Stable Lines: Peripheral IV Urinary Catheter: No Medications and DC Order Prescriptions: Continued pravastatin 80 mg tablet 80 mg PO QPM Qty: 90 RF: 3 calcium carbonate-vitamin D3 500 mg(1,250mg) -200 unit tablet 1 tab PO BID RF: 0 famotidine 20 mg tablet 20 mg PO QPM RF: 0 loperamide 2 mg capsule 2 mg PO .COMPLEX PRN (Reason: Diarrhea) RF: 0 omeprazole 20 mg capsule,delayed release(DR/EC) 20 mg PO DAILY Qty: 90 RF: 3 Discharge Orders: Discharge Order (Routine); Ordered 01/27/21 Ordered By: Ariel Eli Admission Data Admit Date/Time: 01/24/21 21:31 Attending Provider: Mayra Pathak Admit Provider: Marquis Woodard Primary Care Provider: Mikel Muniz Other Providers: Juan Cabrera ; Aubrey Cai Other Interventions: Discharge Summary Assessment (RN) Last Done: 01/27/21 11:24 Supervising Physician Co-Signing Physician Notes Resident Physician Supervision Note: I independently interviewed and examined the patient and verified the larson history and physical, reviewed labs and image studies and agree with resident Dr. Garcia findings and care plan. Resident Activity Tracking Resident Involvement: Resident Care Provided Care Provided: Adult Hospital Medicine
== END 2021-01-27 15:13 | disposition short-term general hospital (02) | DRG 389 ==
LOC: ED 16:28 → SUATTDRO 21:31 → 3N 21:31